=== PATIENT | female | born 1970 | race Caucasian/White ===

== ENCOUNTER 2017-01-01 04:15 | Emergency (ER) | payer BC ==
[~2017-01-01] VITALS: Ht 162.6 cm; Wt 86.2 kg
[~2017-01-01 04:15] MED LIST: ALDACTONE50 MG PO; CEFTIN500 MG PO; GLUCOPHAGE500 MG/TAB PO; LEVOXYL0.125 MG PO; PROMETRIUM200 M1 PO; PYRIDIUM200 M1 PO
[2017-01-01 04:20] VITALS: BP 134/83; TEMP 98.8
[2017-01-01 04:55] LABS: PH 6 (5-8); SQUAMOUS EPITHELIAL 0-2 /hpf; URINE APPEARANCE Clear; URINE BACTERIA Rare /hpf; URINE BILIRUBIN Negative (NEGATIVE); URINE BLOOD 3+ (NEGATIVE); URINE COLOR Straw; URINE GLUCOSE Negative (NEGATIVE); URINE KETONE Negative (NEGATIVE); URINE UROBILINOGEN Negative (NEGATIVE)
[2017-01-01] MEDS ORDERED: CIPRO 500MG TA500 MG PO (05:02)
[2017-01-01 05:09] VITALS: PULSE 80
== END 2017-01-01 05:10 | disposition home or self-care (01) ==
LOC: COL.ER 04:15
PROVIDERS: Emergency Medicine
DX: N39.0 Urinary tract infection, site not specified (principal)

== ENCOUNTER → 2017-02-28 | Outpatient (CLI) | payer BC ==
[~2017-02-28] MED LIST changes: +CIPRO 500MG TA500 MG PO
== END ==
LOC: MC.RAD 11:20
DX: Z12.31 Encounter for screening mammogram for malignant neoplasm of breast (principal)

== ENCOUNTER 2018-02-19 17:42 | Emergency (ER) | payer OTHER ==
[~2018-02-19] VITALS: Ht 162.6 cm; Wt 86.4 kg
[2018-02-19] MEDS ORDERED: CRANBERRY450 MG PO (18:01)
[2018-02-19 18:30] LABS: BASO # 0.1 (0.0-0.2); BASO % 0.5 % (0.0-2.0); EOS # 0.1 (0.0-0.7); EOS % 1.1 % (0-4.0); GRAN # 6.9 (1.4-6.5); HEMATOCRIT 40.4 % (37.0-47.0); HEMOGLOBIN 14.1 g/dl (12.5-16.0); LYMPH # 3.2 (1.2-3.4); MEAN CELL VOLUME 90 fl (80.0-100.0); MEAN CORPUSCULAR HEMOGLOBIN 31 pg (27.0-31.0); MEAN CORPUSCULAR HGB CONC 35 g/dl (33.0-37.0); MEAN PLATELET VOLUME 8.3 fl (7.4-10.4); MONO # 0.7 (0.1-0.6); PLATELET COUNT 264 K/mm3 (130-400); RED BLOOD COUNT 4.49 M/mm3 (4.10-5.30); REDCELL DISTRIBUTION WIDTH-CV 11.8 % (11.5-14.5)
[2018-02-19 18:42] LABS: ALBUMIN 3.6 gm/dL (3.5-5.0); BILIRUBIN,TOTAL 0.5 mg/dL (0.0-1.0); CALCIUM 8.8 mg/dL (8.4-10.2); CREATININE, serum 0.61 mg/dL (0.52-1.25); POTASSIUM 3.7 mmol/L (3.4-5.0); TOTAL PROTEIN 6.5 gm/dL (6.4-8.2)
[2018-02-19 19:04] VITALS: BP 127/83; PULSE 68; TEMP 97.7
== END 2018-02-19 19:18 | disposition home or self-care (01) ==
LOC: COL.ER 17:42
PROVIDERS: Family Medicine
DX: G43.B0 Ophthalmoplegic migraine, not intractable (principal); Z79.84 Long term (current) use of oral hypoglycemic drugs

== ENCOUNTER → 2018-04-18 | Outpatient (CLI) | payer OTHER ==
[~2018-04-18] MED LIST changes: +CRANBERRY450 MG PO
== END ==
LOC: MC.RAD 10:38
DX: Z12.31 Encounter for screening mammogram for malignant neoplasm of breast (principal)

== ENCOUNTER → 2018-12-25 | Outpatient (CLI) | payer OTHER | LOC: COL.RAD 12-20 07:30 | DX: M54.40 Lumbago with sciatica, unspecified side (principal); G89.29 Other chronic pain ==

== ENCOUNTER → 2019-01-06 | Outpatient (CLI) | payer OTHER | LOC: MHCPAIN 10:24 | DX: G89.29 Other chronic pain (principal); M47.817 Spondylosis without myelopathy or radiculopathy, lumbosacral region; M53.3 Sacrococcygeal disorders, not elsewhere classified | CPT/HCPCS: G0463 ==

== ENCOUNTER → 2019-01-09 | Outpatient (CLI) | payer OTHER | LOC: MHCPAIN 14:28 | DX: M47.817 Spondylosis without myelopathy or radiculopathy, lumbosacral region (principal); M54.16 Radiculopathy, lumbar region | CPT/HCPCS: J1040; Q9967 ==

== ENCOUNTER → 2019-02-17 | Outpatient (CLI) | payer OTHER | LOC: MHCPAIN 10:46 | DX: G89.29 Other chronic pain (principal); M47.817 Spondylosis without myelopathy or radiculopathy, lumbosacral region; M53.3 Sacrococcygeal disorders, not elsewhere classified | CPT/HCPCS: G0463 ==

== ENCOUNTER → 2019-07-22 | Outpatient (CLI) | payer OTHER | LOC: MC.RAD 08:00 | DX: Z12.31 Encounter for screening mammogram for malignant neoplasm of breast (principal) ==

== ENCOUNTER → 2020-05-19 | Outpatient (CLI) | payer OTHER | LOC: MHCPAIN 09:33 | DX: M47.817 Spondylosis without myelopathy or radiculopathy, lumbosacral region (principal); M54.5 Low back pain; M53.3 Sacrococcygeal disorders, not elsewhere classified; G89.29 Other chronic pain | CPT/HCPCS: G0463 ==

== ENCOUNTER → 2020-06-24 | Outpatient (CLI) | payer OTHER | LOC: MHCPAIN 15:08 | DX: M47.817 Spondylosis without myelopathy or radiculopathy, lumbosacral region (principal); M54.5 Low back pain; M53.3 Sacrococcygeal disorders, not elsewhere classified; G89.29 Other chronic pain | CPT/HCPCS: G0463 ==

== ENCOUNTER → 2020-07-15 | Outpatient (CLI) | payer OTHER | LOC: MHCPAIN 13:28 | DX: M47.817 Spondylosis without myelopathy or radiculopathy, lumbosacral region (principal); M54.5 Low back pain; M53.3 Sacrococcygeal disorders, not elsewhere classified; G89.29 Other chronic pain | CPT/HCPCS: G0463; J1100; J2250; J3010 ==

== ENCOUNTER → 2020-08-03 | Outpatient (CLI) | payer OTHER | LOC: MC.RAD 07:45 | DX: Z12.31 Encounter for screening mammogram for malignant neoplasm of breast (principal) ==

== ENCOUNTER → 2021-01-11 | Outpatient (CLI) | payer OTHER | LOC: MHCPAIN 08:11 | DX: M47.817 Spondylosis without myelopathy or radiculopathy, lumbosacral region (principal); M54.5 Low back pain; G89.29 Other chronic pain; M53.3 Sacrococcygeal disorders, not elsewhere classified | CPT/HCPCS: G0463 ==

== ENCOUNTER → 2022-03-22 | Outpatient (CLI) | payer OTHER | LOC: MHCPAIN 11:07 | DX: M47.896 Other spondylosis, lumbar region (principal); M53.3 Sacrococcygeal disorders, not elsewhere classified; G89.29 Other chronic pain | CPT/HCPCS: G0463 ==

== ENCOUNTER 2022-10-23 06:25 | Day surgery (SDC) | payer OTHER ==
[~2022-10-23] VITALS: Ht 162.6 cm; Wt 88.2 kg
[2022-10-23 07:02] VITALS: BP 116/78; PULSE 95; TEMP 98
[2022-10-23 08:05] VITALS: BP 114/78; PULSE 98; TEMP 98.1
--- NOTE | 2022-10-23 08:05 | NUR ---
Patient arrives to [facility] [place] [facility] for recovery. SHe ambulates to the chair in her room with standby assist and steady gait. BEdside report is received. PIV to TKO. Monitoring is applied -VSS and WNL on room air. is at the bedside. She denies pain or nausea.
[2022-10-23 08:20] VITALS: BP 120/79; PULSE 92
--- NOTE | 2022-10-23 08:20 | NUR ---
Patient is alert, resting comfortably. SHe denies pain or nausea. She is offered and receives a muffin and juice. Tolerating PO well.
[2022-10-23 08:35] VITALS: BP 121/81; PULSE 80
--- NOTE | 2022-10-23 08:43 | NUR ---
Patient has met discharge criteria. Discharge instructions are discussed. She denies any questions and verbalizes understanding. PIV is removed with catheter intact and hemostasis achieved. SHe changes to her clothing independently. She is escorted to the exit via wheelchair by staff and discharged to the care of her , who drives her home in a private vehicle at [id number].
== END 2022-10-23 08:43 | disposition home or self-care (01) ==
LOC: SDCO 06:25
DX: Z12.11 Encounter for screening for malignant neoplasm of colon (principal); Z80.0 Family history of malignant neoplasm of digestive organs
CPT/HCPCS: J2704; J7120